=== PATIENT | female | born 1960 | race Caucasian/White ===

== ENCOUNTER 2017-08-07 07:07 | Day surgery (SDC) | payer OTHER ==
[2017-07-30 16:28] VITALS: BMI 24.5
--- NOTE | 2017-08-01 13:40 | HP ---
Admitting History and Physical - Primary Care Physician PCP: Bharat Cesar - Admission Chief Complaint: Right breast cancer DCIS History of Present Illness: 56 year old postmenapausal female who had screening mammogram 05/2017 showing 6mm focus of microcalcifications in right upper inner quadrant of breast 7.5 cm FN. Right stereotactic core bx revealed DCIS. Breast MRI ahowed newly diagnosed right breast cancer left breast negative 07/2017. 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 Cardiovascular: Yes: Hyperlipdemia Rheumatology: Yes: Other (arthritis) - Past Surgical History Additional Past Surgical History: abdominoplasty ,face lift ,lasik - Smoking History Smoking history: Never smoked - Alcohol/Substance Use Hx Alcohol Use: No Home Medications - Allergies Allergies/Adverse Reactions: Allergies Allergy/AdvReac Type Severity Reaction Status Date / Time No Known Drug Allergies Allergy Verified 07/30/17 16:18 - Home Medications Home Medications: Ambulatory Orders Multivitamin [One Daily] 1 each PO DAILY 07/30/17 Family Disease History - Family Disease History Family History: Denies Physical Examination Constitutional: Yes: Well Nourished, No Distress Breast(s): Yes: Other (symmetrical no masses palpable no adenopathy bilaterally post biopsy changes right breast diffuselly nodular bilaterally) Problem List - Problems (1) Ductal carcinoma in situ (DCIS) of right breast Code(s): D05.11 - INTRADUCTAL CARCINOMA IN SITU OF RIGHT BREAST Assessment/Plan Right breast wide excision with mammogram needle localization
[2017-08-07] MEDS ORDERED: LIDOCAINE HCL 1%, 10 MG/ML (20ML VIAL) ONE (09:34)
[2017-08-07] MEDS ORDERED: BUPIVACAINE HCL/PF 2.5 MG/ML - 30 ML VIAL IJ ONE (09:34)
[2017-08-07] MEDS ORDERED: PROPOFOL 20 ML ONE (09:46)
[2017-08-07] MEDS ORDERED: MIDAZOLAM HCL 2 MG/2 ML SINGLE DOSE VIAL ONE (09:46)
[2017-08-07] MEDS ORDERED: ePHEDrine SULFATE 50 MG/1 ML AMPULE ONE (11:03)
[2017-08-07] MEDS ORDERED: ONDANSETRON 4 MG/2 ML VIAL ONE (11:03)
[2017-08-07] MEDS ORDERED: ceFAZolin SODIUM 1 GM VIAL ONE (11:03)
[2017-08-07] MEDS ORDERED: DEXAMETHASONE SOD PHOSPHATE 4 MG/1 ML VIAL ONE (11:03)
[2017-08-07] MEDS ORDERED: LIDOCAINE HCL 2% JELLY (5 ML/TUBE) ONE (11:03)
[2017-08-07] MEDS ORDERED: KETOROLAC TROMETHAMINE 30 MG/1 ML VIAL ONE (11:03)
[2017-08-07] MEDS ORDERED: LIDOCAINE HCL 1%, 10 MG/ML (50 mL VIAL) IJ ONE (11:30)
[2017-08-07] MEDS ORDERED: BUPIVACAINE HCL/PF 0.25% (2.5MG/ML) 10 ML VIAL IJ ONE (11:30)
[2017-08-07] MEDS ORDERED: KETOROLAC TROMETHAMINE 30 MG/1 ML VIAL IVPUSH PRN (11:45)
[2017-08-07] MEDS ORDERED: ONDANSETRON 4 MG/2 ML VIAL IVPUSH PRN ×2 (11:45→11:48)
[2017-08-07] MEDS ORDERED: DEXTROSE 5%-0.45% SALINE 1,000 ML IV SCH (11:45)
[2017-08-07] MEDS ORDERED: PROMETHAZINE HCL 25 MG/1 ML VIAL IVPUSH PRN (11:48)
[2017-08-07] MEDS ORDERED: oxyCODONE HCL 5 MG TABLET PO PRN ×2 (11:48)
[2017-08-07] MEDS ORDERED: LACTATED RINGERS SOLUTION 1,000 ML IV SCH (12:00)
[2017-08-07 12:49] VITALS: TEMP 98.2
[2017-08-07] MEDS ORDERED: oxyCODONE HCL 5 MG TABLET ONE (13:16)
--- NOTE | 2017-08-07 13:37 | OP ---
DATE OF OPERATION: 08/07/2017 PREOPERATIVE DIAGNOSIS: Right breast ductal carcinoma in situ. POSTOPERATIVE DIAGNOSIS: Right breast ductal carcinoma in situ. PROCEDURE: Right mammographic localized wide excision with complex tissue transfer. ANESTHESIA: General intubated. ATTENDING SURGEON: Marina Cesar M.D. FORESTRY HUNTER: ANGELICA Rodríguez ESTIMATED BLOOD LOSS: Minimal. COMPLICATIONS: None. PROCEDURE: Patient was made aware of the risks and benefits of the procedure and consented. She was placed in the supine position. Preoperatively, patient was going to the Radiology Suite where a needle was placed next the index lesion. After general anesthesia was induced, the patient was intubated. The operative site was prepped and draped in the usual sterile fashion. A curvilinear periareolar incision was made using electrocautery. Skin flaps were made. Needle was withdrawn to the puncture site and . Tissues around the wire were then sharply excised with short suture superior, long suture lateral. Specimen radiograph confirmed the presence of the index lesion. Additional segments were taken superior, inferior medial, lateral, deep and anterior. Clips were placed at the new margins in each specimen. The wound was then copiously irrigated with normal saline. Hemostasis was maintained by electrocautery. Using electrocautery, the breast tissue was taken off the pectoralis muscle and rotated into the defect, which was then closed with multiple layers of figure-of-8 suture of 2-0 Vicryl. The skin was then closed with deep 3-0 Vicryl, followed a running subcuticular 4-0 Monocryl. The area was infiltrated with 1:1 mixture of 1% lidocaine with 0.25% bupivacaine. Steri-Strips, sterile bandage and a compression bra were then applied. The patient having tolerated the procedure well was transferred to the recovery room in excellent condition. MARINA CESAR M.D. [id number]
[2017-08-07 14:27] VITALS: BP 126/78; PULSE 90
--- NOTE | 2017-08-14 11:34 | PATH ---
Surgical Pathology Report Patient Name: GULSHAN ARIAS [facility]. Rec. #: [id number] /Age/Gender: 1960 (Age: 56) / F Account: [id number] Location: [facility] AMBULATORY Taken: 08/07/2017 Received: 08/07/2017 Reported: 08/14/2017 Physicians: Bharat Cesar M.D. Specimen(s) Received A: RIGHT BREAST WIDE EXCISION B: RIGHT BREAST SUPERIOR MARGIN C: RIGHT BREAST INFERIOR MARGIN D: RIGHT BREAST MEDIAL MARGIN E: RIGH T BREAST LATERAL MARGIN F: RIGHT BREAST ANTERIOR MARGIN G: RIGHT BREAST POSTERIOR MARGIN Clinical History DCIS Final Diagnosis A. RIGHT BREAST, WIDE EXCISION: NO RESIDUAL CARCINOMA. REACTIVE CHANGES AND FIBROSIS AT PRIOR BIOPSY SITE. B. RIGHT BREAST, SUPERIOR MARGIN: BREAST TISSUE, NEGATIVE FOR CARCINOMA. C. RIGHT BREAST, INFERIOR MARGIN: BREAST TISSUE, NEGATIVE FOR CARCINOMA. D. RIGHT BREAST, MEDIAL MARGIN: BREAST TISSUE, NEGATIVE FOR CARCINOMA. E. RIGHT BREAST, LATERAL MARGIN: BREAST TISSUE, NEGATIVE FOR CARCINOMA. F. RIGHT BREAST, ANTERIOR MARGIN: BREAST TISSUE, NEGATIVE FOR CARCINOMA. G. RIGHT BREAST, POSTERIOR MARGIN: BREAST TISSUE, NEGATIVE FOR CARCINOMA. Comment: The specimen Is entirely submitted. The case was discussed with Dr. Cesar on August 14, 2017. Electronically Signed Liat Jean M.D. Gross Description A. Received in formalin, labeled "right breast wide excision," is a 4.5 x 3.5 x 2.7 cm. morelos-yellow, irregular, portion of fibroadipose tissue with a needle localization wire present. There is a short suture marking the superior aspect and a long suture marking the lateral aspect, per the surgeon. There is no skin or nipple present. The specimen is inked as follows: superior and lateral blue; inferior green; medial yellow; anterior red; deep black. The specimen is serially sectioned from lateral to medial. Sectioning reveals a 1.8 x 1.0 x 0.5 cm focus of firm fibrous tissue abutting the superior margin. The focus is 0.4 cm from the deep margin and 0.6 cm from the lateral margin. Paint Striping Machine Operator sections are submitted in 8 cassettes as follows: [id number] submitted focus of firm fibrous tissue (each with deep, superior and inferior margins); 6-anterior margin; 7-lateral margin; 8-medial margin. Additional sections: 9 to 14: the rest of the specimen. The specimen is entirely submitted. Time to formalin fixation: 15 minutes Total formalin fixation time: Approximately 31 hours. B. Received in formalin labeled "right breast superior margin," is a 2.0 x 1.8 x 1.0 cm portion of fibroadipose tissue with a clip marking the new margin, per the surgeon. The new margin is inked blue and the specimen is serially sectioned. The specimen is entirely submitted in 3 cassettes. C. Received in formalin labeled "right breast inferior margin," is a 2.7 x 1.5 x 1.1 cm irregular portion of fibroadipose tissue with a clip marking the new margin, per the surgeon. The new margin is inked blue and the specimen is serially sectioned. The specimen is entirely submitted in 3 cassettes. D. Received in formalin labeled "right breast medial margin," is a 1.5 x 1.5 x 0.5 cm portion of fibroadipose tissue with a clip marking the new margin, per the surgeon. The new margin is inked blue and the specimen is serially sectioned. The specimen is entirely submitted in 2 cassettes. E. Received in formalin labeled "right breast lateral margin," is a 2.6 x 2.5 x 0.5 cm portion of fibroadipose tissue with a clip marking the new margin, per the surgeon. The new margin is inked blue and the specimen is serially sectioned. The specimen is entirely submitted in 3 cassettes. F. Received in formalin labeled "right breast anterior margin," is a 3.5 x 2.5 x 0.9 cm portion of fibroadipose tissue with a clip marking the new margin, per the surgeon. The new margin is inked blue and the specimen is serially sectioned. The specimen is entirely and sequentially submitted in 4 cassettes. G. Received in formalin labeled "right breast posterior margin," is a 1.4 x 0.8 x 0.2 cm portion of fibroadipose tissue with a clip marking the new margin, per the surgeon. The new margin is inked blue and the specimen is serially sectioned. The specimen is entirely submitted in one cassette. 08/08/2017 saudi08/08/2017
== END 2017-08-07 14:10 | disposition home or self-care (01) ==
LOC: FASU 07:07
PROVIDERS: ATTEND Surgery Surgical Oncology
PROC: 0JX60ZC Transfer Chest Subcutaneous Tissue and Fascia with Skin, Subcutaneous Tissue and Fascia, Open Approach (ICD-10-PCS; 2017-08-07)
PROC: 0HBT0ZZ Excision of Right Breast, Open Approach (ICD-10-PCS; principal; 2017-08-07 10:49)
DX: D05.11 Intraductal carcinoma in situ of right breast (principal)
CPT/HCPCS: 19281; 88307-TC